=== PATIENT | female | born 1985 | race African-American/Black ===

== ENCOUNTER 2017-07-18 19:08 | Emergency (ER) | payer SELFPAY ==
[~2017-07-18] VITALS: Ht 167.6 cm; Wt 87.7 kg
[2017-07-18 19:20] VITALS: BP 138/88; PULSE 77; RESP 18; O2SAT 100
--- NOTE | 2017-07-18 21:35 | ED.REPORT ---
HPI-Dental/Mouth Prob Date of Service Jul 18, 2017 ED Provider: Chapito Garnica MD The pt is a 32 y/o female with no reported hx who presents to the ED complaining of an abscess in the right lower gums, onset yesterday. Associated sx include malaise, subjective fever, headache and right jaw swelling. There are no other complaints at this time. The pt does not have a dentist. Nursing Notes Stated Complaint: ABSCESS IN MOUTH/NAUSEA Chief Complaint: Dental Nursing Notes Reviewed: Yes Allergies: Coded Allergies: No Known Allergies (Unverified , 07/18/17) General Time Seen by MD: 21:33 Chief Complaint Other (abscess in lower gums) Hx Obtained From: Patient Arrived By: Walk-in Onset Occurred: Yesterday Symptom Duration: Since onset Location: : Gum mandible right Quality: Painful Radiation: : Does not radiate Severity: Current: Moderate Severity: Maximum: Moderate Recent Healthcare: No recent doctor visit Past Medical History Past Medical History none reported Past Surgical History none reported Smoking History Unknown if Ever Smoker Social History Other Social History: Good social support Ambulatory Status Independent Review of Systems Reports: abscess on the right lower gum Reports: right lower jaw swelling Constitutional: Reports: Fever, Malaise Complete sys rev & neg: except as marked. Neurologic: Reports: Headache Physical Exam Initial Vital Signs Vital Signs (First) Date Time Temp Pulse Resp B/P Pulse Ox O2 Delivery O2 Flow Rate FiO2 07/18/17 19:20 37.5 77 18 138/88 100 Room Air Initial VS: Reviewed, Vital signs normal Head / Eyes: Atraumatic, Normocephalic Respiratory: Breath sounds normal, Clear to auscultation, No respiratory distress Cardiovascular: Regular rate & rhythm, Heart sounds normal, Intact distal pulses Abdomen / GI: Soft, Non-tender, No guarding, No rebound, No distention Extremities: Vascular intact, Neuro intact, No swelling, No tenderness Skin: Warm, Dry, No cyanosis Neurologic: Alert, Oriented, Nonfocal ENT: Atraumatic, Airway patent, Pharynx NL Multiple decayed teeth to the gum line in the right lower jaw with swelling of the entire jaw line. No swelling on the floor of the mouth. No extension to the neck or soft tissue of the face. Abscess on teeth #30 and #31 Neck: Atraumatic, Supple, Full range of motion General/Constitutional: Awake, Alert, Cooperative Re-Eval/Medical Decision Med Decision/Clinical Course 32-year-old female with considerable dental decay and an abscess formation along the lower right mandible. There is no extension of the abscess into the soft tissues of the floor of the mouth, throat, or upper face. She was given a prepack of clindamycin and a dental referral. Re-Evaluation/Progress : Time of Eval: 21:39 Re-Evaluation/Progress Note: Rechecked pt. Discussed diagnosis and plan to discharge. Pt understands and agrees with the plan. F/U instruction and RTER warning given. All questions addressed. Counseled Regarding: Diagnosis, Need for follow-up, When/why to return to ED Discharge & Departure Primary Impression: Dental abscess Disposition: Home Discharge Condition All VS Reviewed: Yes Condition: Stable Patient Instructions: Dental Abscess (ED) Additional Instructions: Please see attached dental resources sheet. These teeth need to be pulled. Clindamycin 300 mg by mouth 4 times a day, for 10 days, prepack dispensed. Tylenol and/or ibuprofen as needed for pain. Referrals: DENTISTRY CLINIC,[facility] Action Scribe Attestation Portions of this note were transcribed by Kaleigh Ryan. I,, personally performed the history,physical exam and medical decision-making;I reviewed and confirmed the accuracy of the information in the transcribed note. Signed by Jesus Carrasquillo. 07/18/17 Chapito Garnica MD Jul 18, 2017 21:35 Kaleigh Ryan Jul 18, 2017 21:38
[2017-07-18 22:54] VITALS: BP 121/73; PULSE 73; RESP 18; O2SAT 99
[2017-07-19] MEDS ORDERED: _Clindamycin 150 mg Capsule PO SCH (06:30)
== END 2017-07-18 22:55 | disposition home or self-care (01) ==
LOC: SED 19:08
DX: K04.7 Periapical abscess without sinus (principal); R53.81 Other malaise; R51 Headache